=== PATIENT | female | born 1990 | race Caucasian/White ===

== ENCOUNTER 2019-10-27 05:38 | Inpatient (IN) | payer MEDICAID ==
[~2019-10-27 05:38] MED LIST: Lactated Ringers 1,000 ML IV SCH; Oxytocin/Lactated Ringers 10 UNIT/1,000 ML BAG IV SCH; Sodium Chloride 0.9% 10 ML Syringe FLUSH PRN
[2019-10-27] MEDS ORDERED: Citric Acid/Sodium Citrate Solution 30 ML Cup PO ONE (06:30)
[2019-10-27] MEDS ORDERED: Metoclopramide 10 MG/2 ML SDV IVPUSH ONE (06:30)
[2019-10-27] MEDS ORDERED: Bupivacaine 0.5% 30 ML SDV ONE (07:18)
--- NOTE | 2019-10-27 07:28 | PCM.PREANE ---
Preanesthetic Assessment - Anesthesia/Transfusion/Family Hx Anesthesia History: Prior Anesthesia Without Reaction Transfusion History: No Prior Transfusion(s) - Review of Systems General: No Symptoms Pulmonary: No Symptoms Cardiovascular: No Symptoms Gastrointestinal: No Symptoms Neurological: No Symptoms Other: Reports: None - Physical Assessment NPO Status Date: 10/26/19 NPO Status Time: 22:00 Vital Signs: Last Vital Signs Temp 97.6 F 10/27/19 06:25 Pulse Resp 14 10/27/19 06:25 BP 125/67 10/27/19 06:25 Pulse Ox 99 10/27/19 06:25 Height: 1.6 m Weight: 90.401 kg ASA Class: 2 Mental Status: Alert & Oriented x3 Airway Class: Mallampati = 2 Dentition: Reports: Normal Dentition Thyro-Mental Finger Breadths: 3 Mouth Opening Finger Breadths: 3 ROM/Head Extension: Full Lungs: Clear to Auscultation, Normal Respiratory Effort Cardiovascular: Regular Rate, Regular Rhythm - Lab Values: Laboratory Last Values WBC 14.22 K/mm3 (3.98-10.04) H 10/27/19 05:50 RBC 4.15 M/mm3 (3.98-5.22) 10/27/19 05:50 Hgb 12.3 gm/dl (11.2-15.7) 10/27/19 05:50 Hct 37.7 % (34.1-44.9) 10/27/19 05:50 MCV 90.8 fl (79.4-94.8) 10/27/19 05:50 MCH 29.6 pg (25.6-32.2) 10/27/19 05:50 MCHC 32.6 g/dl (32.2-35.5) 10/27/19 05:50 RDW Std Deviation 47.3 fL (36.4-46.3) H 10/27/19 05:50 Plt Count 208 K/mm3 (182-369) 10/27/19 05:50 MPV 11.9 fl (9.4-12.3) 10/27/19 05:50 Neut % (Auto) 67.6 % (34.0-71.1) 10/27/19 05:50 Lymph % (Auto) 19.1 % (19.3-51.7) L 10/27/19 05:50 [place] % (Auto) 9.5 % (4.7-12.5) 10/27/19 05:50 Eos % (Auto) 1.3 (0.7-5.8) 10/27/19 05:50 Baso % (Auto) 0.2 % (0.1-1.2) 10/27/19 05:50 Neut # (Auto) 9.61 K/mm3 (1.56-6.13) H 10/27/19 05:50 Lymph # (Auto) 2.71 K/mm3 (1.18-3.74) 10/27/19 05:50 [place] # (Auto) 1.35 K/mm3 (0.24-0.36) H 10/27/19 05:50 Eos # (Auto) 0.19 K/mm3 (0.04-0.36) 10/27/19 05:50 Baso # (Auto) 0.03 K/mm3 (0.01-0.08) 10/27/19 05:50 - Allergies Allergies/Adverse Reactions: Allergies Allergy/AdvReac Type Severity Reaction Status Date / Time carbamazepine [From Tegretol] Allergy Severe Muscle Verified 10/27/19 06:27 Aches sertraline [From Zoloft] Allergy Severe Confusion Verified 10/27/19 06:27 cefaclor [From Ceclor] Allergy Intermediate Rash Verified 10/27/19 06:27 - Acknowledgements Anesthesia Type Planned: Spinal Pt an Appropriate Candidate for the Planned Anesthesia: Yes Alternatives and Risks of Anesthesia Discussed w Pt/Guardian: Yes Pt/Guardian Understands and Agrees with Anesthesia Plan: Yes PreAnesthesia Questionnaire - Past Health History Medical/Surgical History: Denies Medical/Surgical History HEENT History: Reports: Other (See Below) Other HEENT History: dental surgery Respiratory History: Reports: Bronchitis, Recurrent 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 Previous cesaren section with last delivery. SAB x7 per patient Psychiatric History: Reports: Anxiety, Bipolar, Depression, OCD, PTSD Other Psychiatric History: Patient was on medications- but stopped when she found out she was . - SUBSTANCE USE Smoking Status *Q: Current Every Day Smoker Tobacco Use Within Last Twelve Months: Cigarettes Second Hand Smoke Exposure: Yes Recreational Drug Use History: No - HOME MEDS Home Medications: Home Meds Pnv No.95/Ferrous Fum/Folic AC [ Tablet] 1 tab PO DAILY 10/26/19 [ History] - CURRENT (IN HOUSE) MEDS Current Meds: Current Medications Lactated Ringer's (Ringers, Lactated) 1,000 mls @ 125 mls/hr IV ASDIRECTED [facility] Last Admin: 10/27/19 06:46 Dose: 125 mls/hr Oxytocin/Lactated Ringer's (Pitocin In Lr 10 Units/1,000 Ml) 10 unit in 1,000 mls @ 100 mls/hr IV ASDIRECTED [facility]; Protocol Sodium Chloride (Saline Flush) 10 ml FLUSH ASDIRECTED PRN PRN Reason: Keep Vein Open Discontinued Medications Citric Acid/Sodium Citrate (Bicitra Solution) 30 ml PO ONETIME ONE Stop: 10/27/19 06:31 Last Admin: 10/27/19 06:46 Dose: 30 ml Metoclopramide HCl (Reglan) 10 mg IVPUSH ONETIME ONE Stop: 10/27/19 06:31 Last Admin: 10/27/19 06:46 Dose: 10 mg
[2019-10-27] MEDS ORDERED: Morphine PF 1 MG/ML Amp ONE (07:34)
[2019-10-27] MEDS ORDERED: Oxytocin 10 Units/1 ML SDV ONE ×2 (07:34→08:22)
[2019-10-27] MEDS ORDERED: Clindamycin Phosphate in D5W 900 MG in Premix Bag 1 BAG IV ONE ×2 (08:00)
[2019-10-27] MEDS ORDERED: Lactated Ringers 1,000 ML ONE ×2 (08:11→08:22)
[2019-10-27] MEDS ORDERED: fentaNYL 100 MCG/2 ML SDV IVPUSH PRN (08:12)
[2019-10-27] MEDS ORDERED: diphenhydrAMINE 50 MG/ML SDV IVPUSH PRN (08:12)
[2019-10-27] MEDS ORDERED: Ondansetron 4 MG/2 ML SDV IVPUSH PRN (08:12)
[2019-10-27] MEDS ORDERED: Ketorolac 30 MG/ML SDV ONE (08:30)
--- NOTE | 2019-10-27 09:01 | PCM.OPNOTE ---
- General Post-Op/Procedure Note Date of Surgery/Procedure: 10/27/19 Operative Procedure(s): repeat Findings: Viable male, weight 6#15 oz, 8/9 APGARS Pre Op Diagnosis: prior , desires repeat Post-Op Diagnosis: Same Primary Surgeon: Mira Daly [facility] Psychologist: Quin Ramos Output, Urine Amount: 150 EBL in mLs: 800 Complications: None Condition: Good Free Text/Narrative:: The patient was taken to the operating room where spinal anesthesia was dosed to surgical levels without difficulty. The patient was prepped and draped in the usual sterile fashion in the dorsal supine position with a leftward tilt. A Pfannenstiel skin incision was made with the scalpel and carried through to the underlying layer of fascia. The fascia was incised in the midline and extended laterally using Lozoya scissors. Laura clamps were used to elevate the superior aspect of the fascial incision, which was elevated, and the underlying rectus muscles were dissected off bluntly and using Lozoya scissors. Attention was then turned to the inferior aspect of the fascial incision, which in similar fashion was grasped with Laura clamps, elevated, and the underlying rectus muscles were dissected off bluntly and using the lozoya. The rectus muscles were dissected in the midline. The peritoneum was entered bluntly; this incision was extended superiorly and inferiorly with good visualization of the bladder. The bladder blade was inserted. The vesicouterine peritoneum was identified and entered sharply using Metzenbaum scissors. This incision was extended laterally and the bladder flap was created digitally. The bladder blade was reinserted. The lower uterine segment was incised in a transverse fashion using the scalpel and with digital traction. Clear fluid was noted. The infant was subsequently delivered by flexing the head to the incision. Body and shoulders followed without difficulty. The cord was clamped and cut. The was subsequently handed to the awaiting jury consultant whose presence had been requested.. The placenta was delivered spontaneously intact with a three-vessel cord noted. The uterus was exteriorized and cleared of all clots and debris. The uterine incision was repaired in 2 layers using 0 monocryl. Hemostasis was visualized. Hemostasis was visualized bilaterally. The uterus was returned to the abdomen. The uterine incision was reexamined and it was noted to be hemostatic. The pelvis was copiously irrigated. The fascia was closed with 1 PDS suture, and the skin was closed with 3-0 monocryl. Sponge, lap, and instrument counts were correct x2. The patient was stable at the completion of the procedure and was subsequently transferred to the recovery room in stable condition.
--- NOTE | 2019-10-27 09:02 | PCM.POSTAN ---
POST ANESTHESIA ASSESSMENT - MENTAL STATUS Mental Status: Alert, Oriented - VITAL SIGNS Vital Signs: Last Vital Signs Temp 97.3 F 10/27/19 08:50 Pulse 102 H 10/27/19 08:50 Resp 13 10/27/19 08:50 BP 120/75 10/27/19 08:50 Pulse Ox 98 10/27/19 08:50 - RESPIRATORY Respiratory Status: Respiratory Rate WNL, Airway Patent, O2 Saturation Stable - CARDIOVASCULAR CV Status: Pulse Rate WNL, Blood Pressure Stable - GASTROINTESTINAL GI Status: No Symptoms - PAIN Pain Score: 0 (post SAB) - POST OP HYDRATION Hydration Status: Adequate & Stable
[2019-10-27] MEDS ORDERED: Ketorolac 30 MG/ML SDV IVPUSH SCH (10:01)
[2019-10-27] MEDS ORDERED: Naloxone 0.4 MG/ML SDV IVPUSH PRN (10:01)
[2019-10-27] MEDS ORDERED: ePHEDrine 50 MG/ML SDV IVPUSH PRN (10:01)
[2019-10-27] MEDS ORDERED: Dextrose 5%-Lactated Ringers 1,000 ML IV SCH (10:01)
[2019-10-27] MEDS ORDERED: Acetaminophen/oxyCODONE 325-5 MG Tab PO PRN ×2 (10:01)
[2019-10-27] MEDS: Ketorolac 30 MG/ML SDV IVPUSH SCH ×2 (13:27→22:11)
[2019-10-27] MEDS: diphenhydrAMINE 50 MG/ML SDV IVPUSH PRN (13:57)
[2019-10-28] MEDS: Ketorolac 30 MG/ML SDV IVPUSH SCH (04:01)
[2019-10-28] MEDS: diphenhydrAMINE 50 MG/ML SDV IVPUSH PRN (04:04)
--- NOTE | 2019-10-28 06:34 | PCM.DCSUM1 ---
Discharge Summary - Hospital Course Diagnosis: Stroke: No - Discharge Data Discharge Date: 10/28/19 Discharge Disposition: Home, Self-Care 01 Condition: Good - Referral to Home Health Primary Care Physician: Mira Daly MD - Patient Summary/Data Operative Procedure(s) Performed: repeat Hospital Course: Admitted for RCS. Uncomplicated. Desires discharge POD1. No complaints. Pain controlled. - Patient Instructions Diet: Usual Diet as Tolerated Activity: No Strenuous Activities Activity, Other: pelvic rest Driving: May Drive Today Wound/Incision Care: Keep Operative Site/Wound Site Clean and Dry Notify Provider of: Fever, Increased Pain, Swelling and Redness, Drainage, Nausea and/or Vomiting - Discharge Plan *PRESCRIPTION DRUG MONITORING PROGRAM REVIEWED*: No *COPY OF PRESCRIPTION DRUG MONITORING REPORT IN PATIENT RAMYA: Not Applicable Home Medications: Home Meds Pnv No.95/Ferrous Fum/Folic AC [ Tablet] 1 tab PO DAILY 10/26/19 [ History] Patient Handouts: Steps to Quit Smoking Referrals: Mira Daly MD [Primary Care Provider] - (2 weeks - telemedicine ok if no concerns about incision, otherwise can do wound check at time of peds visit) - Discharge Summary/Plan Comment DC Time >30 min.: No - General Info Date of Service: 10/28/19 Functional Status: Reports: Pain Controlled - Review of Systems General: Reports: No Symptoms HEENT: Reports: No Symptoms Pulmonary: Reports: No Symptoms Cardiovascular: Reports: No Symptoms Gastrointestinal: Reports: No Symptoms Genitourinary: Reports: No Symptoms Musculoskeletal: Reports: No Symptoms Skin: Reports: No Symptoms Neurological: Reports: No Symptoms Psychiatric: Reports: No Symptoms - Patient Data Vitals - Most Recent: Last Vital Signs Temp 36.8 C 10/28/19 03:42 Pulse 93 10/28/19 03:42 Resp 16 10/28/19 06:00 BP 114/57 L 10/28/19 03:42 Pulse Ox 99 10/28/19 06:00 Weight - Most Recent: 90.401 kg I&O - Last 24 hours: Intake & Output 10/27/19 10/27/19 10/28/19 14:59 22:59 06:59 Intake Total 1100 1000 Output Total 645 1000 1800 Balance 455 -1000 -800 Lab Results - Last 24 hrs: Laboratory Results - last 24 hr 10/27/19 10/27/19 10/27/19 Range/Units 05:50 05:50 05:50 WBC 14.22 H (3.98-10.04) K/mm3 RBC 4.15 (3.98-5.22) M/mm3 Hgb 12.3 (11.2-15.7) gm/dl Hct 37.7 (34.1-44.9) % MCV 90.8 (79.4-94.8) fl MCH 29.6 (25.6-32.2) pg MCHC 32.6 (32.2-35.5) g/dl RDW Std Deviation 47.3 H (36.4-46.3) fL Plt Count 208 (182-369) K/mm3 MPV 11.9 (9.4-12.3) fl Neut % (Auto) 67.6 (34.0-71.1) % Lymph % (Auto) 19.1 L (19.3-51.7) % [place] % (Auto) 9.5 (4.7-12.5) % Eos % (Auto) 1.3 (0.7-5.8) Baso % (Auto) 0.2 (0.1-1.2) % Neut # (Auto) 9.61 H (1.56-6.13) K/mm3 Lymph # (Auto) 2.71 (1.18-3.74) K/mm3 [place] # (Auto) 1.35 H (0.24-0.36) K/mm3 Eos # (Auto) 0.19 (0.04-0.36) K/mm3 Baso # (Auto) 0.03 (0.01-0.08) K/mm3 Manual Slide Review Normal smear RPR Non-reactive (NONREACTIVE) Blood Type O POSITIVE Gel Antibody Screen Negative 10/28/19 Range/Units 05:26 WBC 14.13 H (3.98-10.04) K/mm3 RBC 3.45 L (3.98-5.22) M/mm3 Hgb 10.1 L D (11.2-15.7) gm/dl Hct 31.8 L (34.1-44.9) % MCV 92.2 (79.4-94.8) fl MCH 29.3 (25.6-32.2) pg MCHC 31.8 L (32.2-35.5) g/dl RDW Std Deviation 47.1 H (36.4-46.3) fL Plt Count 152 L (182-369) K/mm3 MPV 12.1 (9.4-12.3) fl Neut % (Auto) 76.5 H (34.0-71.1) % Lymph % (Auto) 10.8 L (19.3-51.7) % [place] % (Auto) 9.8 (4.7-12.5) % Eos % (Auto) 1.0 (0.7-5.8) Baso % (Auto) 0.2 (0.1-1.2) % Neut # (Auto) 10.82 H (1.56-6.13) K/mm3 Lymph # (Auto) 1.52 (1.18-3.74) K/mm3 [place] # (Auto) 1.38 H (0.24-0.36) K/mm3 Eos # (Auto) 0.14 (0.04-0.36) K/mm3 Baso # (Auto) 0.03 (0.01-0.08) K/mm3 Manual Slide Review RPR (NONREACTIVE) Blood Type Gel Antibody Screen Med Orders - Current: Current Medications Diphenhydramine HCl (Benadryl) 25 mg IVPUSH Q6H PRN PRN Reason: Itching or Nausea Last Admin: 10/28/19 04:04 Dose: 25 mg Ephedrine Sulfate (Ephedrine Sulfate) 5 mg IVPUSH SEECOMMENT PRN PRN Reason: Other Ibuprofen (Motrin) 600 mg PO Q6H PRN PRN Reason: mild pain or fever Naloxone HCl (Narcan) 0.1 mg IVPUSH SEECOMMENT PRN PRN Reason: Respiratory Depression Oxycodone/Acetaminophen (Percocet 325-5 Mg) 2 tab PO Q4H PRN PRN Reason: Pain (severe 7-10) Oxycodone/Acetaminophen (Percocet 325-5 Mg) 1 tab PO Q4H PRN PRN Reason: Pain (moderate 4-6) Discontinued Medications Bupivacaine HCl (Marcaine 0.5%) Confirm Administered Dose 30 ml .ROUTE .STK-MED ONE Stop: 10/27/19 07:19 Last Admin: 10/27/19 08:06 Dose: 20 ml Citric Acid/Sodium Citrate (Bicitra Solution) 30 ml PO ONETIME ONE Stop: 10/27/19 06:31 Last Admin: 10/27/19 06:46 Dose: 30 ml Diphenhydramine HCl (Benadryl) 25 mg IVPUSH Q6H PRN PRN Reason: Pruritis Fentanyl (Sublimaze) 50 mcg IVPUSH Q5M PRN PRN Reason: Pain Lactated Ringer's (Ringers, Lactated) 1,000 mls @ 125 mls/hr IV ASDIRECTED [facility] Last Admin: 10/27/19 06:46 Dose: 125 mls/hr Oxytocin/Lactated Ringer's (Pitocin In Lr 10 Units/1,000 Ml) 10 unit in 1,000 mls @ 100 mls/hr IV ASDIRECTED [facility]; Protocol Clindamycin Phosphate 900 mg/ (Premix) 50 mls @ 100 mls/hr IV ONETIME ONE Stop: 10/27/19 08:29 Last Admin: 10/27/19 07:33 Dose: 100 mls/hr Gentamicin Sulfate 90 mg/ (Sodium Chloride) 102.25 mls @ 102.25 mls/hr IV ONETIME ONE Stop: 10/27/19 08:59 Last Admin: 10/27/19 13:28 Dose: Not Given Lactated Ringer's (Ringers, Lactated) Confirm Administered Dose 1,000 mls @ as directed .ROUTE .STK-MED ONE Stop: 10/27/19 08:12 Lactated Ringer's (Ringers, Lactated) Confirm Administered Dose 1,000 mls @ as directed .ROUTE .STK-MED ONE Stop: 10/27/19 08:23 Dextrose/Lactated Ringer's (Dextrose 5%-Lactated Ringers) 1,000 mls @ 125 mls/ hr IV ASDIRECTED [facility] Stop: 10/27/19 18:00 Last Admin: 10/27/19 13:33 Dose: 125 mls/hr Ketorolac Tromethamine (Toradol) Confirm Administered Dose 30 mg .ROUTE .STK- MED ONE Stop: 10/27/19 08:31 Ketorolac Tromethamine (Toradol) 30 mg IVPUSH Q6H [facility] Stop: 10/27/19 22:02 Last Admin: 10/27/19 13:28 Dose: Not Given Ketorolac Tromethamine (Toradol) 30 mg IVPUSH Q6H [facility] Stop: 10/28/19 02:01 Last Admin: 10/28/19 04:01 Dose: 30 mg Lidocaine HCl (Xylocaine-Mpf 1%) Confirm Administered Dose 5 ml .ROUTE .STK-MED ONE Stop: 10/27/19 07:57 Metoclopramide HCl (Reglan) 10 mg IVPUSH ONETIME ONE Stop: 10/27/19 06:31 Last Admin: 10/27/19 06:46 Dose: 10 mg Miscellaneous Medication (Phenylephrine 1 Mg/10 Ml-Ns) Confirm Administered Dose 1 mg IV .STK-MED ONE Stop: 10/27/19 08:18 Morphine Sulfate (Duramorph Pf) Confirm Administered Dose 1 mg .ROUTE .STK-MED ONE Stop: 10/27/19 07:35 Ondansetron HCl (Zofran) 4 mg IVPUSH ONETIME PRN PRN Reason: Nausea/Vomiting Oxytocin (Pitocin) Confirm Administered Dose 10 unit .ROUTE .STK-MED ONE Stop: 10/27/19 07:35 Oxytocin (Pitocin) Confirm Administered Dose 10 unit .ROUTE .STK-MED ONE Stop: 10/27/19 08:23 Sodium Chloride (Saline Flush) 10 ml FLUSH ASDIRECTED PRN PRN Reason: Keep Vein Open - Exam General: Reports: Alert, Oriented HEENT: Reports: Pupils Equal, Pupils Reactive, EOMI, Mucous Membr. Moist/[place] Neck: Reports: Supple Lungs: Reports: Clear to Auscultation, Normal Respiratory Effort Cardiovascular: Reports: Regular Rate, Regular Rhythm GI/Abdominal Exam: Normal Bowel Sounds, Soft, Non-Tender, No Organomegaly, No Distention, No Abnormal Bruit, No Mass, Pelvis Stable Rectal (Female) Exam: Normal Exam, Normal Rectal Tone Back Exam: Reports: Normal Inspection, Full Range of Motion Extremities: Normal Inspection, Normal Range of Motion, Non-Tender, No Pedal Edema, Normal Capillary Refill Skin: Reports: Warm, Dry, Intact Wound/Incisions: Reports: Healing Well Neurological: Reports: No New Focal Deficit Psy/Mental Status: Reports: Alert, Normal Affect, Normal Mood
--- NOTE | 2019-10-28 07:36 | PCM48HPAN ---
Post Anesthesia Note - EVALUATION WITHIN 48HRS OF ANESTHETIC Vital Signs in Normal Range: Yes Patient Participated in Evaluation: Yes Respiratory Function Stable: Yes Airway Patent: Yes Cardiovascular Function Stable: Yes Hydration Status Stable: Yes Pain Control Satisfactory: Yes Nausea and Vomiting Control Satisfactory: Yes Mental Status Recovered: Yes Vital Signs: Last Vital Signs Temp 36.8 C 10/28/19 03:42 Pulse 93 10/28/19 03:42 Resp 15 10/28/19 07:00 BP 114/57 L 10/28/19 03:42 Pulse Ox 98 10/28/19 07:00
[2019-10-28] MEDS ORDERED: Ibuprofen 600 MG Tab PO PRN (08:00)
[2019-10-28 11:17] VITALS: BP 121/71; PULSE 78
== END 2019-10-28 14:54 | disposition home or self-care (01) | DRG 788 ==
LOC: JD.OB 05:38
PROVIDERS: ADMIT Obstetrics & Gynecology; ATTEND Obstetrics & Gynecology
PROC: 10D00Z1 Extraction of Products of Conception, Low, Open Approach (ICD-10-PCS; principal; 2019-10-27)
DX: O34.211 Maternal care for low transverse scar from previous cesarean delivery (principal); O99.334 Smoking (tobacco) complicating childbirth; F17.200 Nicotine dependence, unspecified, uncomplicated; Z37.0 Single live birth; Z3A.36 36 weeks gestation of pregnancy
CPT/HCPCS: 01961; 36415; 59025; 85025; 86592; 86850; 86900; 86901; 94762; A9270-GY; J1200; J1580; J1885; J2001; J2274; J2370; J2590; J2765; J3490; J7050; J7120; J7121

== ENCOUNTER 2022-11-12 06:53 | Inpatient (IN) | payer MEDICAID ==
[~2022-11-12 06:53] MED LIST changes: +Ketorolac 30 MG/ML SDV ONE; +Lidocaine 1% 2 ML ONE; +Lidocaine 1%/Sod Bicarbonate in NS 8.4% 1 ML Syringe IDERM PRN; +Ondansetron 4 MG/2 ML SDV ONE; -Oxytocin/Lactated Ringers 10 UNIT/1,000 ML BAG IV SCH; +Propofol 200 MG/20 ML SDV ONE; +Rocuronium 50 MG/5 ML Vial ONE; +fentaNYL 100 MCG/2 ML SDV ONE
[2022-11-12] MEDS ORDERED: Bupivacaine 0.25% 10 ML SDV ONE (07:18)
[2022-11-12] MEDS ORDERED: Ondansetron 4 MG/2 ML SDV IVPUSH PRN ×2 (07:20→15:19)
[2022-11-12] MEDS ORDERED: fentaNYL 100 MCG/2 ML SDV IVPUSH PRN (07:20)
[2022-11-12] MEDS ORDERED: Midazolam 1 MG/ML 2 ML SDV ONE (07:41)
[2022-11-12] MEDS ORDERED: Clindamycin Phosphate in D5W 900 MG in Premix Bag 1 BAG IV ONE ×2 (07:49)
[2022-11-12] MEDS ORDERED: HYDROmorphone 0.5 MG/0.5 ML Syringe ONE ×2 (08:16→09:14)
[2022-11-12] MEDS ORDERED: Rocuronium 50 MG/5 ML Vial ONE (08:34)
[2022-11-12] MEDS ORDERED: Sugammadex Sodium 200 MG/2 ML VIAL ONE (08:51)
[2022-11-12] MEDS: HYDROmorphone 0.5 MG/0.5 ML Syringe IVPUSH PRN ×2 (09:37→09:57)
[2022-11-12] MEDS ORDERED: HYDROmorphone 0.5 MG/0.5 ML Syringe IVPUSH PRN (10:49)
[2022-11-12] MEDS ORDERED: Acetaminophen/oxyCODONE 325-5 MG Tab PO PRN (10:49)
[2022-11-12] MEDS: Acetaminophen/oxyCODONE 325-5 MG Tab PO PRN ×3 (11:40→17:31)
[2022-11-12] MEDS: Sodium Chloride 0.9% 10 ML Syringe FLUSH SCH ×2 (13:09→13:10)
[2022-11-12] MEDS ORDERED: Ketorolac 15 MG/ML SDV IVPUSH PRN (13:30)
[2022-11-12] MEDS: Simethicone 80 MG Tab.Chew PO PRN ×2 (15:29→21:35)
[2022-11-12] MEDS ORDERED: Calcium Carbonate 500 MG Tab.Chew PO PRN (18:46)
[2022-11-12] MEDS ORDERED: Nicotine 21 MG/24 Hr Patch TRDERM ONE (18:47)
[2022-11-13] MEDS: Acetaminophen/oxyCODONE 325-5 MG Tab PO PRN (04:26)
[2022-11-13] MEDS ORDERED: Ibuprofen 600 MG Tab PO PRN (07:30)
[2022-11-13] MEDS: Simethicone 80 MG Tab.Chew PO PRN (07:31)
[2022-11-13 07:35] VITALS: BP 148/85; PULSE 108
[2022-11-13 08:45] LABS: BASOPHILS ABSOLUTE AUTO 0.01 K/mm3 (0.01-0.08); BASOPHILS PERCENT AUTO 0.1 % (0.1-1.2); EOSINOPHILS ABSOLUTE AUTO 0.16 K/mm3 (0.04-0.36); EOSINOPHILS PERCENT AUTO 1.1 (0.7-5.8); HEMATOCRIT 36.8 % (34.1-44.9); HEMOGLOBIN 11.8 gm/dl (11.2-15.7); IMMATURE GRAN ABSOLUTE AUTO 0.06 K/mm3 (0.00-0.10); IMMATURE GRAN PERCENT AUTO 0.4 % (<=1.0); LYMPHOCYTES ABSOLUTE AUTO 2.26 K/mm3 (1.18-3.74); LYMPHOCYTES PERCENT AUTO 15.1 % (19.3-51.7); MEAN CORPUSCULAR HEMOGLOBIN 29.1 pg (25.6-32.2); MEAN CORPUSCULAR HGB CONC 32.1 g/dl (32.2-35.5); MEAN CORPUSCULAR VOLUME 90.6 fl (79.4-94.8); MEAN PLATELET VOLUME 10.7 fl (9.4-12.3); MONOCYTES ABSOLUTE AUTO 1.36 K/mm3 (0.24-0.36); MONOCYTES PERCENT AUTO 9.1 % (4.7-12.5); NEUTROPHILS ABSOLUTE AUTO 11.13 K/mm3 (1.56-6.13); NEUTROPHILS PERCENT AUTO 74.2 % (34.0-71.1); PLATELET COUNT,PLT 314 K/mm3 (182-369); RED BLOOD CELL COUNT 4.06 M/mm3 (3.98-5.22); WHITE BLOOD CELL COUNT,WBC 14.98 K/mm3 (3.98-10.04)
== END 2022-11-13 09:10 | disposition home or self-care (01) | DRG 743 ==
LOC: JD.SDS 06:53 → JD.OB 09:38 → JD.SDS 12:25
PROVIDERS: ADMIT Obstetrics & Gynecology; ATTEND Obstetrics & Gynecology
PROC: 0UT90ZZ Resection of Uterus, Open Approach (ICD-10-PCS; principal; 2022-11-12)
PROC: 0UT70ZZ Resection of Bilateral Fallopian Tubes, Open Approach (ICD-10-PCS; 2022-11-12)
DX: N92.1 Excessive and frequent menstruation with irregular cycle (principal); E28.2 Polycystic ovarian syndrome; R87.612 Low grade squamous intraepithelial lesion on cytologic smear of cervix (LGSIL); J01.01 Acute recurrent maxillary sinusitis; F17.210 Nicotine dependence, cigarettes, uncomplicated; E66.9 Obesity, unspecified; F41.9 Anxiety disorder, unspecified; H54.7 Unspecified visual loss; F43.10 Post-traumatic stress disorder, unspecified; F32.A Depression, unspecified; Z88.1 Allergy status to other antibiotic agents; Z88.8 Allergy status to other drugs, medicaments and biological substances; Z68.38 Body mass index [BMI] 38.0-38.9, adult
CPT/HCPCS: 36415; 81025; 85025; 86850; 86900; 86901; A9270-GY; J1170; J1580; J1885; J2250; J2405; J2704; J3010; J3490; J7120